=== PATIENT | female | born 1960 | race Caucasian/White ===

== ENCOUNTER 2022-04-27 13:42 | Emergency (ER) | payer BC, OTHER ==
[2022-04-27 13:58] VITALS: BP 120/72; RESP 16; TEMP 98.2
--- NOTE | 2022-04-27 15:02 | ED ---
Eye Problem HPI - General Chief complaint: Eye Problems Stated complaint: Eye issues Time Seen by Provider: 04/27/22 14:48 Source: patient, RN notes reviewed Mode of arrival: ambulatory Limitations: no limitations - History of Present Illness Initial comments: Patient 61-year-old female presenting to the ER today with chief complaint of a red eye. She states after taking off her makeup this morning with a make-up wipe she noticed slight discomfort that subsided. Hours later she saw her eye in the mirror it was bright red and proceeded to emergency room. Denies visual changes, pain, discomfort. She endorses associated left sided lower jaw tooth pain in which she has an appointment at her dentist on Friday. She wears a partial and dentures on top. Denies fevers or chills. - Related Data Allergies Allergy/AdvReac Type Severity Reaction Status Date / Time diphenhydramine Allergy Unknown Verified 04/27/22 13:58 [From Richardl] Review of Systems ROS Statement: Those systems with pertinent positive or pertinent negative responses have been documented in the HPI. ROS Other: All systems not noted in ROS Statement are negative. Past Medical History Past Medical History: GERD/Reflux History of Any Multi-Drug Resistant Organisms: None Reported Past Surgical History: Orthopedic Surgery, Tonsillectomy, Tubal Ligation Additional Past Surgical History / Comment(s): wrist surgery Past Psychological History: No Psychological Hx Reported Smoking Status: Current every day smoker, Vaper Past Alcohol Use History: None Reported Past Drug Use History: None Reported General Exam Limitations: no limitations General appearance: alert, in no apparent distress Head exam: Present: atraumatic, normocephalic, normal inspection Eye exam: Present: PERRL, EOMI, other (left subconjunctival hemorrhage ). Absent: normal appearance Pupils: Present: normal accommodation ENT exam: Present: normal exam, mucous membranes moist Neck exam: Present: normal inspection. Absent: tenderness, meningismus, lymphadenopathy Respiratory exam: Present: normal lung sounds bilaterally. Absent: respiratory distress, wheezes, rales, rhonchi, stridor Cardiovascular Exam: Present: regular rate, normal rhythm, normal heart sounds. Absent: systolic murmur, diastolic murmur, rubs, gallop, clicks GI/Abdominal exam: Present: soft, normal bowel sounds. Absent: distended, tenderness, guarding, rebound, rigid Extremities exam: Present: normal inspection, full ROM, normal capillary refill. Absent: tenderness, pedal edema, joint swelling, calf tenderness Back exam: Present: normal inspection Neurological exam: Present: alert, oriented X3, CN II-XII intact Psychiatric exam: Present: normal affect, normal mood Skin exam: Present: warm, dry, intact, normal color. Absent: rash Course Vital Signs 04/27/22 13:55 Temperature 98.2 F Pulse Rate 63 Respiratory 16 Rate Blood Pressure 120/72 O2 Sat by Pulse 99 Oximetry Medical Decision Making - Medical Decision Making 61-year-old presented for left eye subconjunctival hemorrhage. Patient has no visual disturbance no hyphema patient does not take any blood thinners. Patient will be discharged in stable condition with follow-up return parameters were discussed we discussed supportive treatment. Disposition Clinical Impression: Subconjunctival hemorrhage Disposition: HOME SELF-CARE Condition: Stable Instructions (If sedation given, give patient instructions): Subconjunctival Hemorrhage (ED) Additional Instructions: Please return to the Emergency Department if symptoms worsen or any other concerns. Is patient prescribed a controlled substance at d/c from ED?: No Referrals: Nonstaff,Physician [Primary Care Provider] - 1-2 days Time of Disposition: 15:08
[2022-04-27 15:27] VITALS: PULSE 67
== END 2022-04-27 15:27 | disposition home or self-care (01) ==
LOC: EC 13:42
DX: H11.30 Conjunctival hemorrhage, unspecified eye (principal); K21.9 Gastro-esophageal reflux disease without esophagitis; F17.200 Nicotine dependence, unspecified, uncomplicated; F17.290 Nicotine dependence, other tobacco product, uncomplicated; Z88.8 Allergy status to other drugs, medicaments and biological substances
CPT/HCPCS: 99282